=== PATIENT | male | born 1990 | race Two or more races ===

== ENCOUNTER 2024-05-23 23:22 | Emergency (ER) | payer SELFPAY ==
[~2024-05-23] VITALS: Ht 160 cm; Wt 56.7 kg
[2024-05-23 23:50] VITALS: BP 122/69; TEMP 98.6; O2SAT 97
== END 2024-05-23 23:50 | disposition home or self-care (01) ==
LOC: ER 23:28
DX: R13.19 Other dysphagia (principal); F17.200 Nicotine dependence, unspecified, uncomplicated